=== PATIENT | female | born 1965 | race Caucasian/White ===

== ENCOUNTER 2020-07-22 12:55 | Emergency (ER) | payer OTHER ==
[~2020-07-22] VITALS: Ht 154.9 cm; Wt 62.0 kg
[2020-07-22 13:34] LABS: BASOPHILS % 0.9 % (0.0-2.0); EOSINOPHILS % 0.7 % (0.0-5.0); HEMATOCRIT. 34.8 % (36.0-48.0); HEMOGLOBIN. 11.5 g/dL (12.0-16.0); LYMPHOCYTES % 23.2 % (20.0-50.0); MEAN CORPUSCULAR HEMOGLOBIN 27.7 pg (28.0-32.0); MEAN CORPUSCULAR VOLUME 83.9 fL (81.0-99.0); MEAN PLATELET VOLUME 7.4 fl (7.4-10.4); MONOCYTES % 6.9 % (2.0-8.0); NEUTROPHILS % 68.3 % (40.0-76.0); PLATELET 339 x1000/uL (130-400); RED BLOOD CELL COUNT 4.15 mill/uL (4.2-5.4); RED CELL DISTRIBUTION WIDTH 14.5 % (11.6-14.6)
[2020-07-22 13:44] LABS: INR 1.1; PROTHROMBIN TIME 11.9 sec (9.6-11.0)
[2020-07-22 13:49] LABS: CHLORIDE 107 mEq/L (98-107)
[2020-07-22 19:27] VITALS: BP 143/77
[2020-07-22] MEDS ORDERED: IOHEXOL-300 100 ML BOTTLE ONE (20:00)
== END 2020-07-22 20:58 | disposition short-term general hospital (02) ==
LOC: ER 13:01
DX: R18.8 Other ascites (principal); Z20.822 Contact with and (suspected) exposure to COVID-19; E78.00 Pure hypercholesterolemia, unspecified; Z90.49 Acquired absence of other specified parts of digestive tract
CPT/HCPCS: 36415; 74177; 80053; 85025; 85610; 87426; 93005; 99285; Q9967

== ENCOUNTER 2023-07-11 11:52 | Emergency (ER) | payer MEDICAID, OTHER ==
[~2023-07-11] VITALS: Ht 162.6 cm; Wt 57.0 kg
[2023-07-11 11:55] VITALS: TEMP 98.7
[2023-07-11 12:40] VITALS: PULSE 70; RESP 16; O2SAT 94
[2023-07-11] MEDS: ALBUTEROL (0.083%) 2.5MG/3ML NEB HHN STA (12:40)
[2023-07-11] MEDS: IPRATROPIUM BROMIDE (0.02%) 0.5MG/2.5ML NEB HHN STA (12:41)
[2023-07-11] MEDS: PREDNISONE 20MG TABLET PO STA (12:46)
[2023-07-11 12:51] LABS: BASOPHILS % 0.9 % (0.0-2.0); HEMATOCRIT. 34.9 % (36.0-48.0); HEMOGLOBIN. 11.7 g/dL (12.0-16.0); LYMPHOCYTES % 16.2 % (20.0-50.0); MEAN CORPUSCULAR HEMOGLOBIN 27.1 pg (28.0-32.0); MEAN CORPUSCULAR HGB CONC 33.5 g/dL (31.0-37.0); MEAN CORPUSCULAR VOLUME 80.9 fL (81.0-99.0); MEAN PLATELET VOLUME 6.9 fl (7.4-10.4); MONOCYTES % 7.4 % (2.0-8.0); NEUTROPHILS % 74.5 % (40.0-76.0); PLATELET 515 x1000/uL (130-400); RED BLOOD CELL COUNT 4.31 mill/uL (4.2-5.4); RED CELL DISTRIBUTION WIDTH 16.3 % (11.6-14.6); WHITE BLOOD COUNT 9.4 x1000/uL (4.5-11.0)
[2023-07-11 13:15] LABS: ALANINE AMINOTRANSFERASE 9 IU/L (10-49); ALBUMIN 4.3 g/dL (3.2-4.8); ASPARTATE AMINOTRANSFERASE 19 IU/L (<34); BILIRUBIN TOTAL < 0.2 mg/dL (0.1-1.0); CALCIUM 9.5 mg/dL (8.7-10.4); CARBON DIOXIDE 28 mEq/L (21-32); CHLORIDE 105 mEq/L (98-107); CREATININE 0.7 mg/dL (0.6-1.0); D-DIMER 0.71 mg/L FEU (<0.50); GLUCOSE 92 mg/dL (70-105); POTASSIUM 3.5 mEq/L (3.5-5.1); PROTEIN TOTAL 7.7 g/dL (6.0-8.3); PROTHROMBIN TIME 11.3 sec (9.6-11.0); SODIUM 140 mEq/L (136-145); UREA NITROGEN BLOOD 12 mg/dL (9-23)
[2023-07-11] MEDS: AZITHROMYCIN 500 MG TABLET PO ONE (13:20)
[2023-07-11] MEDS: LIDOCAINE HCL 1% 20ML VIAL (Pyxis) INJ INFIL ONE (13:20)
[2023-07-11] MEDS: CEFTRIAXONE SODIUM 1G VIAL IM ONE (13:20)
[2023-07-11 13:41] LABS: TROPONIN I HIGH SENSITIVITY < 4 ng/L (3.0-34)
[2023-07-11 15:09] LABS: TROPONIN I HIGH SENSITIVITY 4 ng/L (3.0-34)
[2023-07-11] MEDS ORDERED: LEVO750T68 MT (16:42)
[2023-07-11] MEDS ORDERED: P50 MT (16:42)
[2023-07-11 16:53] VITALS: BP 128/63; PULSE 74; RESP 16
== END 2023-07-11 16:54 | disposition home or self-care (01) ==
LOC: ER 11:52
DX: J18.9 Pneumonia, unspecified organism (principal); E78.00 Pure hypercholesterolemia, unspecified; J45.909 Unspecified asthma, uncomplicated; Z90.49 Acquired absence of other specified parts of digestive tract; Z20.822 Contact with and (suspected) exposure to COVID-19
CPT/HCPCS: 80053; 83880; 85025; 85379; 85610; 84484; 87804 ×2; 36415; 71045; 94640; 96372; 99284; 87426; J7512; J0696; J3490; Z7610 ×3